=== PATIENT | male | born 1970 | race Caucasian/White ===

== ENCOUNTER 2016-12-31 13:53 | Emergency (ER) | payer OTHER ==
[~2016-12-31] VITALS: Ht 177.8 cm; Wt 102.0 kg
[~2016-12-31 13:53] MED LIST: CIPRO500 MG PO; MOTRIN800 MG PO
[2016-12-31 14:47] LABS: HEMATOCRIT 44.2 % (38.0-50.0); MCH 31.5 PG (29.0-34.0); MCHC 33.9 G/DL (30.0-36.0); MCV 92.9 FL (86-99); PLATELET COUNT 184 K/uL (156-360); RBC DIS.WIDTH-CV 12.2 % (11.8-14.6); RBC DIS.WIDTH-SD 41.9 % (39-53); RED BLOOD COUNT 4.76 M/uL (4.00-5.50); WHITE BLOOD COUNT 5.9 K/uL (4.1-10.2)
[2016-12-31 14:55] LABS: CHLORIDE 106 mEq/L (99-109); POTASSIUM 4.1 mEq/L (3.7-5.4); SODIUM 139 mEq/L (136-147)
[2016-12-31 14:57] LABS: GLUCOSE 89 mg/dL (70-99)
[2016-12-31 14:58] LABS: ANION GAP 10 MEQ/L (2-14)
[2016-12-31 14:59] LABS: TOTAL BILIRUBIN 1.5 mg/dL (0.0-1.0)
[2016-12-31 15:00] LABS: ALKALINE PHOSPHATASE 67 IU/L (3-129)
[2016-12-31 15:01] LABS: GFR ESTIMATE (CALCULATED) > 59 mL/min/
[2016-12-31 15:02] LABS: UREA NITROGEN (BUN) 17 mg/dL (9-23)
[2016-12-31 15:04] LABS: LIPASE 25 U/L (1.0-51.0)
[2016-12-31 15:13] LABS: ADD MIUA? NO; BILIRUBIN NEGATIVE; BLOOD NEGATIVE; COLOR YELLOW ((YELLOW)); GLUCOSE (STRIP) NEGATIVE; KETONES NEGATIVE; LEUKOCYTES NEGATIVE; NITRITE NEGATIVE; PROTEIN (STRIP) 30; UROBILINOGEN 0.2 MG/DL (0.2-1.0)
[2016-12-31] MEDS ORDERED: PERCOCET 5/31 TABLET PO (16:59)
[2016-12-31 17:10] VITALS: BP 141/100
== END 2016-12-31 17:14 | disposition home or self-care (01) ==
LOC: EME 13:53
PROVIDERS: Nurse Practitioner Family
DX: S50.11XA Contusion of right forearm, initial encounter (principal); S30.1XXA Contusion of abdominal wall, initial encounter; Y99.0 Civilian activity done for income or pay; W11.XXXA Fall on and from ladder, initial encounter
CPT/HCPCS: 73090; 74177; 80053; 81003; 83690; 85027; 99281; 99285; J7030